=== PATIENT | male | born 1985 | race Caucasian/White ===

== ENCOUNTER 2021-05-04 09:52 | Emergency (ER) | payer OTHER ==
[~2021-05-04] VITALS: Ht 188 cm; Wt 68.9 kg
[~2021-05-04 09:52] MED LIST: ALBU-118 IH; ATEN50TA8 PO; PRON INH
[2021-05-04 09:53] VITALS: BP 122/64
[2021-05-04] MEDS ORDERED: NAPR-1704 PO (11:03)
[2021-05-04] MEDS ORDERED: PENI500T20 PO (11:03)
[2021-05-04] MEDS ORDERED: ACET-8386 PO (11:03)
--- NOTE | 2021-05-04 11:14 | NUR ---
Patient discharged with v/s stable. Written and verbal after care instructions ABOUT DENTAL ABSCESS given and explained. Patient alert, oriented and verbalized understanding of instructions. Ambulatory with steady gait. All questions addressed prior to discharge. ID band removed. Patient advised to follow up with PMD. Rx of PENICILLIN, NAPROXEN, AND NORCO 5-325MG given. Patient educated on indication of medication including possible reaction and side effects. Opportunity to ask questions provided and answered.
[2021-05-05] MEDS ORDERED: ONDA4TAB PO (21:51)
[2021-05-05] MEDS ORDERED: METO-486 PO (21:51)
== END 2021-05-04 11:14 | disposition home or self-care (01) ==
LOC: MED 09:52
DX: K04.7 Periapical abscess without sinus (principal); J45.909 Unspecified asthma, uncomplicated; Z79.899 Other long term (current) drug therapy; Z98.890 Other specified postprocedural states
CPT/HCPCS: 99283

== ENCOUNTER 2021-05-05 18:16 | Emergency (ER) | payer OTHER ==
[~2021-05-05] VITALS: Ht 188 cm; Wt 70.3 kg
[~2021-05-05 18:16] MED LIST changes: +ACET-8386 PO; +NAPR-1704 PO; +PENI500T20 PO
[2021-05-05 20:35] VITALS: BP 131/90
--- NOTE | 2021-05-05 20:38 | NUR ---
TO LOBBY A/W BED AMBULATORY
[2021-05-05] MEDS ORDERED: ONDA4TAB PO (21:51)
[2021-05-05] MEDS ORDERED: METO-486 PO (21:51)
--- NOTE | 2021-05-05 22:25 | NUR ---
PT LEFT WITHOUT DISCHAGE PAPERWORK
== END 2021-05-05 22:25 | disposition home or self-care (01) ==
LOC: MED 18:16
DX: R11.2 Nausea with vomiting, unspecified (principal); J45.909 Unspecified asthma, uncomplicated
CPT/HCPCS: 99281; 99283

== ENCOUNTER 2022-10-06 23:44 | Emergency (ER) | payer OTHER ==
[~2022-10-06] VITALS: Ht 188 cm; Wt 63.5 kg
[~2022-10-06 23:44] MED LIST changes: -ACET-8386 PO; +ACET-8905 PO; +METO-486 PO; +ONDA4TAB PO
[2022-10-07 00:03] VITALS: BP 123/91
--- NOTE | 2022-10-07 00:03 | NUR ---
to lobby a/w bed ambulatory
--- NOTE | 2022-10-07 01:24 | NUR ---
PT TO BED 04.
[2022-10-07] MEDS ORDERED: predniSONE 20 MG TAB PO ONE (01:30)
--- NOTE | 2022-10-07 01:33 | NUR ---
pt is having shortness of breath through out a day and worsening at work, especially with activities. Alert and oriented x 4. Pt is calm and follow command.
[2022-10-07] MEDS ORDERED: PRED20TA5 PO (01:35)
[2022-10-07] MEDS ORDERED: ALBU0.0912 IH (01:35)
[2022-10-07 01:58] VITALS: BP 123/91
--- NOTE | 2022-10-07 01:59 | NUR ---
Patient discharged with v/s stable. Written and verbal after care instructions given and explained. Patient verbalized understanding. Ambulatory with steady gait. All questions addressed prior to discharge. Advised to follow up with PMD. PT LEFT WITH HIS BELONGINGS.
== END 2022-10-07 01:58 | disposition home or self-care (01) ==
LOC: MED 23:44
DX: J45.909 Unspecified asthma, uncomplicated (principal)
CPT/HCPCS: 99283; J7512